=== PATIENT | female | born 1955 | race Caucasian/White ===

== ENCOUNTER 2018-08-26 07:50 | Day surgery (SDC) | payer BC, SELFPAY ==
--- NOTE | 2018-08-26 | PATH_ITS ---
[facility] Accession Number: [id number] . 01 Material submitted: . PART A: CECAL POLYP PART B: ASCENDING COLON POLYP PART C: TRANSVERSE COLON POLYP PART D: DESCENDING COLON POLYP . 02 Diagnosis: A. Cecal Polyp: Tubular adenoma. . B. Ascending Colon Polyp: Tubular adenoma. . C. Transverse Colon Polyp: Hyperplastic polyp. . D. Descending Colon Polyp: Tubular adenoma. MRV/08/28/2018 . 02 Electronically signed: . Teddy Marshall MD, PhD, Pathologist NPI- [id number] . 01 Gross description: . Part A: CECAL POLYP: Received in formalin is 1 fragment(s) of ruiz, soft tissue measuring 0.5 x 0.4 x 0.3 cm submitted entirely in 1 cassette(s) Part B: ASCENDING COLON POLYP: Received in formalin is 1 fragment(s) of ruiz, soft tissue measuring 0.5 x 0.4 x 0.3 cm submitted entirely in 1 cassette(s) Part C: TRANSVERSE COLON POLYP: Received in formalin is 1 fragment(s) of ruiz, soft tissue measuring 0.5 x 0.5 x 0.3 cm submitted entirely in 1 cassette(s) Part D: DESCENDING COLON POLYP: Received in formalin are multiple fragment(s) of ruiz, soft tissue measuring 1.2 x 0.6 x 0.3 cm in aggregate submitted entirely in 1 cassette(s) /CKI /CKI . 02 Pathologist provided ICD-10: D12.0, D12.2, D12.4 . 02 CPT . 259392, 979550, [id number], [id number] Performed at: [address] [address], [place], [place] [id number] MD Dave Jackson MD Phone: [phone] Performed at: 02 [facility] [id number] [place] [id number] MD Kristan Glass MD Phone: [phone]
[2018-08-26 08:10] VITALS: BP 110/71; PULSE 86; RESP 16; TEMP 36.7; O2SAT 99; BMI 44.1
[2018-08-26] MEDS: SODIUM CHLORIDE 0.9% 1,000 ML 70 ML IV (08:21)
--- NOTE | 2018-08-26 08:45 | P.HP_ITS ---
History of Present Illness Date Patient Seen: 08/26/18 Chief complaint: [id number] SCREENING COLONOSCOPY W/POSS BX Narrative: 62-year-old female with a history of colon polyps on her 1st colonoscopy at age 52 who is here for colon polyp surveillance. The patient had a colonoscopy performed 5 years ago which was unrevealing. She currently has no active GI symptoms or family history of colon cancer. Patient History Family & Social History Social History: household members none Meds Home Medications Medication Instructions Recorded Confirmed Type amitriptyline 100 mg PO BEDTIME 08/26/18 08/26/18 History Allergies Allergy/AdvReac Type Severity Reaction Status Date / Time No Known Drug Allergies Allergy Verified 08/26/18 08:21 Review of Systems Review of Systems All systems reviewed & are unremarkable except as noted in HPI and below Exam Vital Signs (past 8 hours): - 08/26/18 08:10 Temperature 98.0 F Pulse Rate 86 Respiratory Rate 16 Blood Pressure 110/71 Pulse Oximetry 99 Oxygen Delivery Method Room Air Narrative Exam Narrative: General: Patient is well developed, not in apparent distress Cardiovascular: Regular rate and rhythm, no murmurs, rubs, or gallops; no evidence of edema; no palpable abdominal aortic aneurysm Gastrointestinal: Normoactive bowel sounds, soft, nontender, nondistended, no rebound tenderness, no hepatosplenomegaly, no evidence of hernia Assessment & Plan Plan: Assessment/Plan Narrative: 62-year-old female here for colon polyp surveillance. Last colonoscopy 2012 showed no polyps. Regarding the procedure(s), the risks and potential complications, benefits, and alternatives (including not doing the procedure) were discussed with the patient. The risks include but are not limited to bleeding, splenic injury, infection, perforation which may require surgical intervention, missed lesions, and adverse reactions to sedative medicines. After a question and answer period , the patient agreed to proceed with the procedure(s) and gives informed consent.
--- NOTE | 2018-08-26 09:16 | PM.OP.ENDO ---
Operative Date/Time/Diagnoses Date of procedure: 08/26/18 Procedure Notes Procedure in detail: Surgeon: Rayray Kitchen MD Procedure: Colonoscopy with polypectomy x 4 Preoperative diagnosis: Colon polyp surveillance; last colonoscopy 5 years ago Postoperative diagnosis: Colon polyps x4 status post polypectomy, grade 1 internal hemorrhoids Medications: Conscious sedation using 2 mg IV of Midazolam and 100 mcg IV of Fentanyl Preanesthesia Assessment An H and P was performed/updated and the Px?s ASA class is 1. The procedure was discussed in detail with the patient. The potential risks and complications including infection, bleeding, missed lesions, perforation, need for surgery in case of perforation, prolonged hospital stay, and were explained. A brief question and answer period was allotted and once all questions were answered, informed consent was obtained. The patient was brought back to the procedure room and placed on standard monitoring. The patient?s vital signs were monitored continuously throughout the entire procedure. Prior to starting, a timeout was performed to confirm the patient?s identity, allergies, medications, and procedure. Procedure in detail The patient was placed in left lateral decubitus position and once adequate sedation was obtained a WIL was performed. The digital rectal examination did not reveal any palpable lesions. The tip of the colonoscope was placed in the anal canal and advanced without difficulty all the way to the cecum which was identified by the appendiceal orifice and the ileocecal valve. The terminal ileum was intubated to a distance of 5 cm ileocecal valve and the mucosa appeared normal. The colonoscope was then brought back to the cecum and careful inspection of all gale of the colon was performed with irrigation of any residual stool. There were a total of 3 polyps found in the cecum, ascending colon, and transverse colon measuring 2-3 mm and were sessile. These were removed by means of cold Jumbo forceps with minimal bleeding. Resection and retrieval were complete. In the descending colon there was note of a 5 mm sessile polyp which was removed by means of cold snare with minimal bleeding. Resection and retrieval were complete Retroflexion was performed in the rectum which revealed grade 1 internal hemorrhoids. The patient tolerated the procedure well and will be brought back to the recovery area to be discharged once criteria are met. The prep was judged to be good/excellent and adequate to identify polyps less than 5 mm. The withdrawal time was 13 min. The total physician intraservice time was 19 min. Complications There were no complications and estimated blood loss was minimal. Recommendations: Resume previous diet Continue outPx medications Follow up pathology results Repeat colonoscopy in 3 or 5 years depending on pathology results An emergency contact number was given to the patient for any complications related to the procedure
[2018-08-26] MEDS: MIDAZOLAM 5 MG/5 ML VIAL IV (09:30)
[2018-08-26] MEDS: fentaNYL 250 MCG/5 ML INJ IV (09:30)
--- NOTE | 2018-08-26 09:44 | PM.DS.1 ---
History of Present Illness Chief complaint: [id number] SCREENING COLONOSCOPY W/POSS BX Narrative: 62-year-old female with a history of colon polyps on her 1st colonoscopy at age 52 who is here for colon polyp surveillance. The patient had a colonoscopy performed 5 years ago which was unrevealing. She currently has no active GI symptoms or family history of colon cancer. Discharge Providers Primary care physician: Hayley Hawkins MD Discharge provider: Rayray Kitchen MD Discharge Date: 08/26/18 Exam Vital Signs (past 8 hours): - 08/26/18 08:10 Temperature 98.0 F Pulse Rate 86 Respiratory Rate 16 Blood Pressure 110/71 Pulse Oximetry 99 Oxygen Delivery Method Room Air Narrative Exam Narrative: General: Patient is well developed, not in apparent distress Cardiovascular: Regular rate and rhythm, no murmurs, rubs, or gallops; no evidence of edema; no palpable abdominal aortic aneurysm Gastrointestinal: Normoactive bowel sounds, soft, nontender, nondistended, no rebound tenderness, no hepatosplenomegaly, no evidence of hernia Discharge Plan Discharge Plan Patient Disposition: Home Discharge comment: Discharge patient with a copy of procedure report Discharge Med Rec/Prescriptions Prescriptions: No Action amitriptyline 100 mg Tablet 100 mg PO BEDTIME RF: 0 Discharge Orders: Discharge (Order); Ordered 08/26/18 Ordered By: Rayray Kitchen Provider Discharge Instructions Diet: Diet as Tolerated Visit Report/Discharge Packet Stand Alone Forms: Surgery Discharge Discharge Data Primary Care Provider: Hayley Hawkins Attending Provider: Rayray Kitchen
[2018-08-26 09:45] VITALS: BP 113/64; PULSE 93; RESP 12; TEMP 36.8; O2SAT 99
[2018-08-26 09:50] VITALS: BP 117/75; PULSE 99; RESP 13; TEMP 36.6; O2SAT 100
== END 2018-08-26 10:03 | disposition home or self-care (01) ==
PROVIDERS: PCP Family Medicine; Visit Provider Internal Medicine Gastroenterology
PROC: 0DJD8ZZ Inspection of Lower Intestinal Tract, Via Natural or Artificial Opening Endoscopic (ICD-10-PCS; CPT 45378; principal; 2018-08-26 09:30)
DX: Z86.010 Personal history of colon polyps (principal); K64.0 First degree hemorrhoids; D12.0 Benign neoplasm of cecum; D12.2 Benign neoplasm of ascending colon; D12.4 Benign neoplasm of descending colon
CPT/HCPCS: 45385; 45380; J2250; J3010

== ENCOUNTER → 2018-08-26 13:33 | Outpatient (CLI) | payer BC, SELFPAY ==
--- NOTE | 2018-08-26 | DI.RAD.S_ITS ---
This blank DEXA report has been sent in error by the PACS system. The correct and complete report will be forthcoming in 1-2 days. Thank you for your patience and understanding. Dictated by: Fermin Johnson M.D. on 08/26/2018 at 16:12 Approved by: Fermin Johnson M.D. on 08/26/2018 at 16:12
== END ==
PROVIDERS: PCP Family Medicine; Visit Provider Family Medicine
DX: M81.0 Age-related osteoporosis without current pathological fracture (principal); Z78.0 Asymptomatic menopausal state; Z82.62 Family history of osteoporosis
CPT/HCPCS: 77080

== ENCOUNTER → 2019-02-08 12:44 | Outpatient (CLI) | payer BC, SELFPAY | PROVIDERS: PCP Family Medicine; Visit Provider Physician Assistant | DX: R68.89 Other general symptoms and signs (principal) | CPT/HCPCS: 87400 ==

== ENCOUNTER → 2019-02-08 12:55 | Outpatient (ROUT) | payer SELFPAY | PROVIDERS: Visit Provider Physician Assistant | DX: R68.89 Other general symptoms and signs (principal) ==

== ENCOUNTER → 2019-09-20 12:26 | Outpatient (CLI) | payer BC, SELFPAY | PROVIDERS: PCP Family Medicine; Visit Provider Nurse Practitioner | DX: J02.9 Acute pharyngitis, unspecified (principal) | CPT/HCPCS: 87070 ==

== ENCOUNTER → 2022-02-22 11:43 | Outpatient (CLI) | payer BC, SELFPAY | PROVIDERS: PCP Family Medicine; Referring Provider Family Medicine; Visit Provider Family Medicine | DX: M81.0 Age-related osteoporosis without current pathological fracture (principal); Z78.0 Asymptomatic menopausal state | CPT/HCPCS: 77080 ==

== ENCOUNTER → 2022-07-29 11:01 | Outpatient (CLI) | payer BC, SELFPAY ==
[2022-07-29 12:36] LABS: COVID19 -Nasal RAPID Negative (Negative)
== END ==
PROVIDERS: PCP Family Medicine; Visit Provider Surgery
DX: Z20.822 Contact with and (suspected) exposure to COVID-19 (principal); Z01.812 Encounter for preprocedural laboratory examination
CPT/HCPCS: 87635; C9803

== ENCOUNTER 2022-07-30 13:18 | Day surgery (SDC) | payer BC, SELFPAY ==
[2022-07-30 13:50] VITALS: BMI 19.7
[2022-07-30 14:02] VITALS: BP 106/67; PULSE 65; RESP 12; TEMP 36.4; O2SAT 100
[2022-07-30] MEDS: LACTATED RINGERS 1,000 ML 200 ML IV (14:03)
--- NOTE | 2022-07-30 14:37 | PM.HP.1 ---
History of Present Illness History of Present Illness Date Patient Seen: 07/30/22 Time Patient Seen: 14:37 Chief complaint: COLONOSCOPY Narrative: The patient presents for colorectal screening. She is a personal history of colonic polyps, last colonoscopy 4 years ago.. No personal or family history of colon cancer. On further history denies any recent gastrointestinal symptoms. No nausea, vomiting, abdominal pain, loss of appetite, unexplained weight loss, change in bowel habits, diarrhea, constipation, melena, hematochezia, or bright red blood per rectum. Patient History Surgical History Previous section Family & Social History Social History: household members none Tobacco & Substance use: Smoking Status Never smoker alcohol intake current alcohol intake frequency 0-2 drinks per day Substance Use Type does not use Meds Home Medications and Allergies Home Medications Medication Instructions Recorded Confirmed Type amitriptyline 100 mg tablet 50 mg PO BEDTIME 08/26/18 07/30/22 History sodium,potassium,mag sulfates 17.5 See Rx Instructions PO .COMPLEX 07/25/22 07/30/22 Rx gram-3.13 gram-1.6 gram oral soln #354 mL (Suprep Bowel Prep Kit) alendronate 70 mg tablet 70 mg PO WEEKLY 07/30/22 07/30/22 History Allergies Allergy/AdvReac Type Severity Reaction Status Date / Time No Known Drug Allergies Allergy Verified 07/30/22 13:48 Exam Vital Signs (past 8 hours): - 07/30/22 14:02 Temperature 97.6 F Pulse Rate 65 Respiratory Rate 12 Blood Pressure 106/67 Pulse Oximetry 100 Oxygen Delivery Method Room Air Oxygen Delivery Method Room Air Narrative Exam Narrative: General adult woman alert oriented no acute distress Abdomen soft nontender nondistended Assessment & Plan Assessment and plan (1) Personal history of colonic polyps: Status: Acute Assessment & Plan narrative: The patient requires colorectal screening and colonoscopy is recommended. Technical details were discussed. Risks, benefits, alternatives explained. Risks including but not limited to myocardial infarction, aspiration, bleeding, pain, missed lesion, incomplete examination, need for further radiographic studies, colonic perforation, and need for major abdominal surgery were discussed. All questions were answered to their satisfaction, and they are in agreement with this plan. Time Spent With Patient Critical Care time: I spent a total of [] minutes of critical care time on this patient's care today; this time is exclusive of procedural time.
--- NOTE | 2022-07-30 14:39 | PM.OP.COLON ---
Operative Date/Time/Diagnoses Date of procedure: 07/30/22 Time of procedure: 14:39 Pre-op diagnosis: Personal history of colonic polyps Post-op diagnosis: same Procedure & Clinicians Study performed: Colonoscopy Same procedure as scheduled: Yes Indications: Personal history of colonic polyps Surgeon: Chevy Lester Procedure Notes Procedure in detail: The history and physical was performed/updated and the patient is ASA class is 2. The procedure was discussed in detail with the patient. Potential risks complications including infection, bleeding, missed diagnosis, perforation, need for surgery, and were explained. Their questions were answered and informed consent was obtained. Patient was brought to the procedure room and placed standard monitoring equipment. The patient's vital signs were monitored continuously throughout the entire procedure. Prior to starting time-out was performed. The patient was placed in the left lateral recumbent position. Procedural sedation was administered by anesthesia. Examination began with a thorough inspection of the perianal area there was no evidence of fissures, fistulae, external hemorrhoids or cutaneous malignancy. The colonoscopy scope was then placed into the anal canal and was advanced to the cecum, which was identified by the ileocecal valve, the appendiceal orifice and the confluence of the taenia. The scope was then slowly withdrawn examining colon thoroughly in all directions, irrigating it of any residual stool. FINDINGS 1. No masses or polyps 2. Tortuous colon The patient tolerated the procedure well. They will be discharged once criteria are met. The prep was of good/excellent quality. The withdrawl time was 6 minutes. Specimen(s): none sent Complications: none Impression: Normal colonoscopy Post-procedure Recommendations: Colonoscopy in 10 years Disposition: same day surgery
[2022-07-30 15:08] VITALS: BP 102/66; PULSE 83; RESP 25; TEMP 36.2; O2SAT 99
[2022-07-30 15:14] VITALS: BP 105/69; PULSE 78; RESP 21; O2SAT 100
[2022-07-30 15:18] VITALS: BP 113/67; PULSE 89; RESP 16; TEMP 36.6; O2SAT 100
[2022-07-30 15:24] VITALS: BP 115/72; PULSE 85; RESP 15; O2SAT 100
[2022-07-30 15:35] VITALS: BP 118/74; PULSE 80; RESP 16; TEMP 36.3; O2SAT 100
== END 2022-07-30 15:40 | disposition home or self-care (01) ==
PROVIDERS: PCP Family Medicine; Referring Provider Surgery; Visit Provider Surgery
PROC: 0DJD8ZZ Inspection of Lower Intestinal Tract, Via Natural or Artificial Opening Endoscopic (ICD-10-PCS; CPT 45378; principal; 2022-07-30 14:30)
DX: Z12.11 Encounter for screening for malignant neoplasm of colon (principal); Z86.010 Personal history of colon polyps
CPT/HCPCS: 45378; J2704; J3010

== ENCOUNTER → 2023-06-05 08:20 | Outpatient (CLI) | payer MEDICARE, OTHER, SELFPAY ==
--- NOTE | 2023-06-05 | DI.MG.S_ITS ---
BILATERAL DIGITAL SCREENING MAMMOGRAM 3D/2D WITH CAD: 06/05/2023 CLINICAL: Routine screening. Family history of breast cancer. Comparison is made to exams dated: 11/21/2020 mammogram, 09/11/2018 mammogram, and 08/26/2017 mammogram - out side. Both breasts are heterogeneously dense, which may obscure small masses (category c / 51-75% glandular tissue). Current study was also evaluated with a Computer Aided Detection (CAD) system. No significant masses, calcifications, or other findings are seen in either breast. IMPRESSION: NEGATIVE There is no mammographic evidence of malignancy. A 1 year screening mammogram is recommended. Based on Tyrer-Cuzick model (a risk assessment model), the patient's lifetime risk is 23.2% and her 10 year risk is 11.7%. If a patient has an elevated risk, a more comprehensive evaluation should be considered and/or a referral to a genetic counselor. The [employer], [employer], and NCCN Guidelines advise the consideration of Breast MRI as an adjunct to screening mammography in patients whose Lifetime risk to develop breast cancer is 20% or higher. This exam was interpreted at Station ID: [id number]. NOTE: For mammograms, a report in lay terms will be sent to the patient. Approximately 15% of breast malignancies will not be visualized mammographically. In the management of a palpable breast mass, a negative mammogram must not discourage biopsy of a clinically suspicious lesion. Electronically Signed By: Carmen carlisle/patricia:06/05/2023 11:30:53 letter sent: Normal Exam ACR BI-RADS Category 1: Negative [id number]
== END ==
PROVIDERS: PCP Family Medicine; Referring Provider Family Medicine; Visit Provider Family Medicine
DX: Z12.31 Encounter for screening mammogram for malignant neoplasm of breast (principal); Z80.3 Family history of malignant neoplasm of breast
CPT/HCPCS: 77063; 77067

== ENCOUNTER → 2023-12-10 10:25 | Outpatient (CLI) | payer MEDICARE, SELFPAY ==
[2023-12-10 12:02] LABS: BUN Creatinine Ratio 25.4 (6-22); Blood Urea Nitrogen 17 mg/dL (7-17); Calcium 10.4 mg/dL (8.4-10.2); Carbon Dioxide 30 mmol/L (22-32); Chloride 106 mmol/L (98-107); Estimated Glomerular Filt Rate > 60 mL/min (>60); Glucose 101 mg/dL (80-110); HEMOLYSIS < 15 (0-50); Potassium 5.5 mmol/L (3.4-5.1); Sodium 138 mmol/L (137-145)
[2023-12-11 20:12] LABS: Ionized Calcium 5.4 mg/dL (4.5-5.6)
[2023-12-12 08:50] LABS: Parathyroid Hormone Int 18 pg/mL (15-65)
== END ==
LOC: LAB 10:30
PROVIDERS: PCP Family Medicine; Referring Provider Family Medicine; Visit Provider Family Medicine
DX: E83.52 Hypercalcemia (principal); E87.5 Hyperkalemia
CPT/HCPCS: 36415; 80048; 82330; 83970

== ENCOUNTER → 2024-07-23 11:16 | Outpatient (CLI) | payer MEDICARE, SELFPAY ==
--- NOTE | 2024-07-23 11:17 | DI.MG.S_ITS ---
BILATERAL DIGITAL SCREENING MAMMOGRAM 3D/2D WITH CAD: 07/23/2024 CLINICAL: Routine screening. Family history of breast cancer. Comparison is made to exams dated: 11/21/2020 mammogram, 09/11/2018 mammogram - out side, and 06/05/2023 mammogram - [facility]. The breasts are heterogeneously dense, which may obscure small masses (category c / 51-75% glandular tissue). Current study was also evaluated with a Computer Aided Detection (CAD) system. No significant masses, calcifications, or other findings are seen in either breast. There has been no significant interval change. IMPRESSION: NEGATIVE There is no mammographic evidence of malignancy. A 1 year screening mammogram is recommended. Based on Tyrer-Cuzick model (a risk assessment model), the patient's lifetime risk is 22.2% and her 10 year risk is 11.6%. If a patient has an elevated risk, a more comprehensive evaluation should be considered and/or a referral to a genetic counselor. The [place] [employer], [employer], and NCCN Guidelines advise the consideration of Breast MRI as an adjunct to screening mammography in patients whose Lifetime risk to develop breast cancer is 20% or higher. This exam was interpreted at Station ID: [id number]. NOTE: For mammograms, a report in lay terms will be sent to the patient. Approximately 15% of breast malignancies will not be visualized mammographically. In the management of a palpable breast mass, a negative mammogram must not discourage biopsy of a clinically suspicious lesion. Electronically Signed By: Leonardo rios/patricia:07/24/2024 00:02:13 letter sent: Normal Exam ACR BI-RADS Category 1: Negative
== END ==
PROVIDERS: PCP Family Medicine; Referring Provider Family Medicine; Visit Provider Family Medicine
DX: Z12.31 Encounter for screening mammogram for malignant neoplasm of breast (principal); Z80.3 Family history of malignant neoplasm of breast; R92.333 Mammographic heterogeneous density, bilateral breasts
CPT/HCPCS: 77063; 77067

== ENCOUNTER → 2024-11-08 11:11 | Outpatient (CLI) | payer MEDICARE, SELFPAY ==
--- NOTE | 2024-11-08 11:12 | DI.RAD.S_ITS ---
PROCEDURE: XR DEXA AXIAL SKELETON INDICATIONS: osteoporosis COMPARISON: [facility], , XR DEXA AXIAL SKELETON, 02/22/2022, 12:07. FINDINGS: Lumbar Spine: Bone mineral density 0.807 g/cm2, T score -2.2, compared to -2.4. Left Femoral Neck: Bone mineral density 0.521 g/cm2, T score -3.0, unchanged. Left Hip: Bone mineral density 0.706 g/cm2, T score -1.9, unchanged. Fracture Risk Calculation (when applicable): Not applicable (T score greater or equal to -1.0 to: NORMAL) (T score from -1.1 to -2.4: OSTEOPENIA) (T score less than or equal to -2.5: OSTEOPOROSIS) IMPRESSION: Unchanged osteoporosis within the left femoral neck as well as relatively stable osteopenia in the lumbar spine and left hip. Follow-up guidelines as follows: Osteoporosis: Consider a repeat DEXA and Vertebral Fracture Assessment (VFA) exam in 2 years or sooner if medically necessary, to reassess this patient's status. Osteopenia: Consider a repeat DEXA in 2-3 years to reassess this patient's status, or if there is a new clinical indication. Normal: Consider a repeat DEXA in 5 years or sooner, or if there is a new clinical indication. All treatment decisions require clinical judgment and consideration of individual patient factors, including patient preferences, comorbidities, previous drug use, risk factors not captured in the FRAX model (e.g., frailty, falls, vitamin D deficiency, increased bone turnover, interval significant decline in bone density ) and possible under- or over-estimation of fracture risk by FRAX. In addition, the NOF Guide recommends that FDA-approved medical therapies be considered in postmenopausal women and men age >= 50 years with a: * Hip or vertebral (clinical or morphometric) fracture * T-score of <=-2.5 at the spine or hip * Ten-year fracture probability by FRAX of >= 3% for hip fracture or >=20% for major osteoporotic fracture. Dictated by: Ailin Jorgensen M.D. on 11/08/2024 at 15:12 Approved by: Ailin Jorgensen M.D. on 11/08/2024 at 15:19
== END ==
PROVIDERS: PCP Family Medicine; Referring Provider Family Medicine; Visit Provider Family Medicine
DX: M81.0 Age-related osteoporosis without current pathological fracture (principal)
CPT/HCPCS: 77080

== ENCOUNTER → 2024-12-07 11:52 | Outpatient (CLI) | payer MEDICARE, SELFPAY ==
[2024-12-08 09:09] LABS: Parathyroid Hormone Int 22 pg/mL (15-65)
[2024-12-09 13:12] LABS: Ionized Calcium 5.3 mg/dL (4.5-5.6)
== END ==
PROVIDERS: PCP Family Medicine; Referring Provider Family Medicine; Visit Provider Family Medicine
DX: E83.52 Hypercalcemia (principal)
CPT/HCPCS: 36415; 82330; 83970